=== PATIENT | male | born 1970 | race African-American/Black ===

== ENCOUNTER 2017-01-10 16:21 | Emergency (ER) | payer OTHER ==
[~2017-01-10] VITALS: Ht 175.3 cm; Wt 83.9 kg
[~2017-01-10 16:21] MED LIST: CIPROFLOXACIN500 M2 ORAL; HUMULIN R100 UNIT/1 SUBQ; HYDROCODON-ACE1 EA15 ORAL; METRONIDAZOLE500 MG ORAL; NOVOLIN N100 UNIT/1 SUBQ; OMEPRAZOLE10 M1 ORAL; OMEPRAZOLE40 M1 ORAL; RANITIDINE HCL150 MG ORAL; ZOFRAN ODT4 MG ORAL
[2017-01-10] MEDS ORDERED: LANTUS SOL100 UNIT/1 SUBQ (16:43)
[2017-01-10] MEDS ORDERED: LIPITOR80 MG ORAL (16:43)
[2017-01-10] MEDS ORDERED: HUMALOG100 UNIT/3 SUBQ (16:43)
[2017-01-10 16:46] VITALS: BP 148/95
[2017-01-10 17:20] VITALS: BP 148/95
--- NOTE | 2017-01-10 17:52 | Emergency Room Report ---
History of Present Illness General Chief Complaint: General Complaint Source: Patient Present Illness [facility] The patient is a 46-year-old male with insulin-dependent diabetes presenting for an episode of hypoglycemia 5 days prior. He states that he was at work when he began to feel faint and dizzy. He states that he did exercise vigorously that day which is likely the cause of this. He denies any change in insulin regimen. He states that he was feeling much better after eating. He states that he is in the emergency department for clearance to return to work. He states that he records his blood sugars at home which is usually between 100 - 200. She denies any other symptoms including N, V, F, chills, SOB, CP, diaphoresis, dizziness, blurred vision Allergies: Coded Allergies: No Known Allergies (Unverified , 10/17/13) Patient History Past Medical History: see triage record Pertinent Family History: none Reviewed Nursing Documentation: PMH: Agreed, PSxH: Agreed Nursing Documentation-PMH Hx Hypertension: No Hx Pacemaker: No Hx Asthma: No Hx COPD: No Hx Diabetes: Yes Hx Cancer: No Hx Gastrointestinal Problems: No Hx Dialysis: No Hx Neurological Problems: No Hx Cerebrovascular Accident: No Hx Seizures: No Review of Systems All Other Systems: negative except mentioned in HPI Physical Exam Vital Signs Date Time Temp Pulse Resp B/P (MAP) Pulse Ox O2 Delivery O2 Flow Rate FiO2 01/10/17 16:39 98.2 85 17 148/95 100 Room Air Sp02 EP Interpretation: reviewed, normal General Appearance: no apparent distress, alert, GCS 15, non-toxic Head: normocephalic, atraumatic Eyes: bilateral eye normal inspection, bilateral eye PERRL ENT: hearing grossly normal, normal pharynx, no angioedema, normal voice Neck: full range of motion, supple/symm/no masses Respiratory: chest non-tender, lungs clear, normal breath sounds, speaking full sentences Cardiovascular #1: regular rate, rhythm, no edema Gastrointestinal: normal bowel sounds, non tender, soft, non-distended, no guarding, no rebound Genitourinary: normal inspection, no CVA tenderness Musculoskeletal: back normal, gait/station normal, normal range of motion, non- tender Neurologic: alert, oriented x3, responsive, motor strength/tone normal, sensory intact, speech normal Psychiatric: judgement/insight normal, memory normal, mood/affect normal, no suicidal/homicidal ideation Skin: normal color, no rash, warm/dry, well hydrated Medical Decision Making PA Attestation Dr. May is my supervising physician. 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 Differential diagnoses considered but not limited to: Hyperglycemia, hypoglycemia, DKA, among others PE: No tachypnea. No apparent distress. A&Ox4 PERRL. EOMI. Normal mentation. RRR. No MRG Lungs CTA bilat Abdomen: Normal appearance. Non distended. No ecchymosis. Normal BS. Non TTP. No McBurney point tenderness. No guarding. Skin is warm and dry, no rashes. Accu-Chek shows blood sugar in the 160s The patient is discharged home and will followup with primary doctor. He will continue to keep a blood sugar Journal. He was informed of the dangers of hypoglycemia. He was given precautions regarding exercise and diabetes. ER precautions given Last Vital Signs Date Time Temp Pulse Resp B/P (MAP) Pulse Ox O2 Delivery O2 Flow Rate FiO2 01/10/17 17:20 98.2 86 17 148/95 100 Room Air Status: improved Disposition: HOME, SELF-CARE Condition: Improved Patient Instructions: Diabetes and Exercise Additional Instructions: I discussed my findings with the patient. All questions and concerns have been answered. Treatment and medication compliance have been addressed. I advised the patient that they need to follow up with PMD in 3-5 days. Return to ED if symptoms worsen, new symptoms arise, or if needed for any reason. Patient verbalized understanding of discharge instructions. NARAYAN NAVARRETE Jan 10, 2017 17:52
== END 2017-01-10 17:40 | disposition home or self-care (01) ==
LOC: EMR 16:49
DX: E13.649 Other specified diabetes mellitus with hypoglycemia without coma (principal); Z79.4 Long term (current) use of insulin
CPT/HCPCS: 82962; 99284

== ENCOUNTER 2017-06-26 17:06 | Emergency (ER) | payer OTHER ==
[~2017-06-26] VITALS: Ht 175.3 cm; Wt 86.2 kg
[~2017-06-26 17:06] MED LIST changes: +HUMALOG100 UNIT/3 SUBQ; +LANTUS SOL100 UNIT/1 SUBQ; +LIPITOR80 MG ORAL
[2017-06-26] MEDS ORDERED: Norco 5mg/325mg tab ORAL ONE (18:00)
--- NOTE | 2017-06-26 18:07 | Emergency Room Report ---
History of Present Illness General Chief Complaint: Abdominal Pain Present Illness HPI Patient is a 49-year-old male who presents today with complaints of "right- sided pain". Patient states the pain began ago and is intermittent. He states pain currently is 5 out of 10 in severity, no medication has been taken. He denies any aggravating or relieving factors. Patient also complaining of abdominal pain over the last week as well, denies any at this time. Denies any nausea, vomiting, diarrhea or constipation. Patient has no significant medical problems and denies tobacco, alcohol or drug use. Allergies: Coded Allergies: No Known Allergies (Unverified , 10/17/13) Patient History Reviewed Nursing Documentation: PMH: Agreed; PSxH: Agreed Nursing Documentation-PMH Hx Hypertension: No Hx Pacemaker: No Hx Asthma: No Hx COPD: No Hx Diabetes: Yes Hx Cancer: No Hx Gastrointestinal Problems: No Hx Dialysis: No Hx Neurological Problems: No Hx Cerebrovascular Accident: No Hx Seizures: No Review of Systems Gastrointestinal: Reports: abdominal pain Musculoskeletal: Reports: muscle pain All Other Systems: negative except mentioned in HPI Physical Exam Vital Signs Date Time Temp Pulse Resp B/P (MAP) Pulse Ox O2 Delivery O2 Flow Rate FiO2 06/26/17 17:23 98.3 76 20 146/84 99 Room Air 98.2 Sp02 EP Interpretation: reviewed, normal General Appearance: no apparent distress, alert, GCS 15, non-toxic Head: normocephalic, atraumatic Eyes: bilateral eye normal inspection, bilateral eye PERRL ENT: hearing grossly normal, normal pharynx, no angioedema, normal voice Neck: full range of motion, supple/symm/no masses Respiratory: chest non-tender, lungs clear, normal breath sounds, speaking full sentences Cardiovascular #1: regular rate, rhythm, no edema Cardiovascular #2: 2+ carotid (R), 2+ carotid (L), 2+ radial (R), 2+ radial (L) , 2+ dorsalis pedis (R), 2+ dorsalis pedis (L) Gastrointestinal: normal bowel sounds, non tender, soft, non-distended, no guarding, no rebound Rectal: deferred Genitourinary: normal inspection, no CVA tenderness Musculoskeletal: back normal, gait/station normal, normal range of motion, calf tenderness, other - tenderness to palpation of the right inferior ribs Neurologic: alert, oriented x3, responsive, motor strength/tone normal, sensory intact, speech normal Psychiatric: judgement/insight normal, memory normal, mood/affect normal, no suicidal/homicidal ideation Reflexes: 3+ bicep (R), 3+ bicep (L), 3+ tricep (R), 3+ tricep (L), 3+ knee (R) , 3+ knee (L) Skin: normal color, no rash, warm/dry, well hydrated Lymphatic: no adenopathy Medical Decision Making PA Attestation Supervising physician is Dr. May Reaction to Intervention: Improved Diagnostic Impression: Primary Impression: Costochondritis, acute ER Course Patient is a 47-year-old male presents with right rib pain. Patient has point tenderness over the right inferior ribs. Chest x-ray is within normal limits. Patient also complaining of generalized abdominal pain with no tenderness to palpation. Labs are within normal limits. Imaging considered benign at this time. Vitals are within normal limits throughout. Patient is discharged home with instructions to follow with PCP for further evaluation and management. Patient understands and is agreeable with plan. Chest X-Ray Diagnostic Results Chest X-Ray Diagnostic Results : Chest X-Ray Ordered: Yes # of Views/Limited/Complete: 1 View Indication: Chest Pain EP Interpretation: Yes PA Xray: Interpretation reviewed, by supervising MD, and agrees with findings. Interpretation: no consolidation, no effusion, no pneumothorax Impression: No acute disease Electronically Signed by: denton brown PA-C Last Vital Signs Date Time Temp Pulse Resp B/P (MAP) Pulse Ox O2 Delivery O2 Flow Rate FiO2 06/26/17 17:23 98.3 76 20 146/84 99 Room Air 98.2 Status: improved Disposition: HOME, SELF-CARE Condition: Stable Patient Instructions: Abdominal Pain, Adult Denton Brown Jun 26, 2017 18:07
[2017-06-26 18:55] VITALS: BP 146/84
[2017-06-26 19:24] LABS: BASOPHILS % (AUTO) 1.4 % (0.0-2.0); EOSINOPHILS % (AUTO) 1.5 % (0.0-3.0); HEMATOCRIT 42.2 % (42.0-52.0); HEMOGLOBIN 14.4 G/DL (14.2-18.0); LYMPHOCYTES % (AUTO) 35.1 % (20.0-45.0); MEAN CORPUSCULAR VOLUME 83 FL (80-99); MONOCYTES % (AUTO) 7.4 % (1.0-10.0); NEUTROPHILS % (AUTO) 54.6 % (45.0-75.0); PLATELET COUNT 257 K/UL (150-450); RED BLOOD COUNT 5.06 M/UL (4.70-6.10); RED CELL DISTRIBUTION WIDTH 13.6 % (11.6-14.8); WHITE BLOOD COUNT 5.1 K/UL (4.8-10.8)
[2017-06-26 19:33] LABS: ANION GAP 4 mmol/L (5-15); BLOOD UREA NITROGEN 12 mg/dL (7-18); CALCIUM 9.3 MG/DL (8.5-10.1); CARBON DIOXIDE 33 MMOL/L (21-32); CHLORIDE 106 MMOL/L (98-107); CREATININE 1.1 MG/DL (0.55-1.30); POTASSIUM 4.1 MMOL/L (3.5-5.1); SODIUM 143 MMOL/L (136-145)
[2017-06-26 19:38] LABS: ALANINE AMINOTRANSFERASE 27 U/L (12-78); ALBUMIN/GLOBULIN RATIO 1.1 (1.0-2.7); ALKALINE PHOSPHATASE 100 U/L (46-116); ASPARTATE AMINO TRANSFERASE 16 U/L (15-37); BILIRUBIN,TOTAL 0.5 MG/DL (0.2-1.0)
[2017-06-26 20:44] VITALS: BP 159/85
[2017-06-26 20:50] VITALS: BP 159/85
--- NOTE | 2017-06-27 08:47 | Diagnostic Imaging Report ---
Indication: Chest pain Technique: One view of the chest Comparison: 09/24/2014 Findings: Lungs and pleural spaces are clear. Heart size is normal. Inspiration is better on the current exam. Previously demonstrated gastric distention is no longer evident. No other significant change Impression: No acute process
== END 2017-06-26 20:50 | disposition home or self-care (01) ==
LOC: EMR 18:00
DX: M94.0 Chondrocostal junction syndrome [Tietze] (principal); E11.9 Type 2 diabetes mellitus without complications
CPT/HCPCS: 36415; 71045; 80053; 83690; 85025; 99282